=== PATIENT | female | born 1955 | race Caucasian/White ===

== ENCOUNTER → 2017-08-18 | Outpatient (CLI) | payer OTHER ==
--- NOTE | 2017-08-19 15:56 | RADIOLOGY REPORT (SQ) ---
EXAM DESCRIPTION: MRI LUMBAR SPINE WITHOUT COMPLETED DATE/TIME: 08/18/2017 12:48 pm REASON FOR STUDY: OTHER INTERVERTEBRAL DISC DEGENERATION, LUMBAR REGION M51.36 OTHER INTERVERTEBRAL DISC DEGENERATION, LUMBAR REGION COMPARISON: None. TECHNIQUE: Sagittal and Axial imaging includes T1, T2, STIR and gradient echo sequences. Coronal T2/ HASTE imaging. LIMITATIONS: None. FINDINGS: VISUALIZED UPPER ABDOMEN: Limited evaluation. No acute or suspicious findings suggested. SEGMENTATION: No transitional anatomy. The lowest well-developed disc space is labeled L5-S1. ALIGNMENT: Anatomic. VERTEBRAE: Intact. BONE MARROW: Normal. No marrow replacement or reactive changes. DISC SIGNAL: Discs are relatively maintained. No large disc bulges or hernias. POSTERIOR ELEMENTS: Generally intact. No pars defect evident. HARDWARE: None in the spine. CORD AND CONUS: Normal in size and signal intensity. Conus at the appropriate level. SOFT TISSUES: No aortic aneurysm seen. No bulky retroperitoneal adenopathy or mass. No paraspinal mas s or fluid. L1-L2: No significant spinal stenosis or exit foraminal stenosis. L2-L3: No significant spinal stenosis or exit foraminal stenosis. L3-L4: No significant spinal stenosis or exit foraminal stenosis. L4-L5: Mild left foraminal narrowing. L5-S1: Mild left foraminal narrowing. LOWER THORACIC: Incompletely imaged. No stenosis seen. SACRUM: Visualized upper sacrum intact. OTHER: No other significant findings. IMPRESSION: No evidence of spinal stenosis or spinal malalignment. TECHNICAL DOCUMENTATION: JOB ID: [id number] [employer]- All Rights Reserved Reading location - IP/workstation name: [email or web address]
== END ==
LOC: RAD 12:05
PROVIDERS: ATTEND Physician Assistant
DX: M51.36 Other intervertebral disc degeneration, lumbar region (principal)
CPT/HCPCS: 72148

== ENCOUNTER → 2017-08-30 | Outpatient (CLI) | payer OTHER ==
--- NOTE | 2017-08-31 11:51 | XCELERA REPORT ---
[address] [address] Lower Extremity Arterial Evaluation Name: GALILEO MIRANDA Age: 62 yrs Gender: Female : 1955 Patient Status: Outpatient Patient Location: Study Date: 08/30/2017 09:24 AM Procedure: A color flow and duplex scan of the lower extremity arteries was performed bilaterally with velocity and waveform anaylsis. Ankle brachial indicies performed. Reason For Study: PVD Ordering Physician: PERNELL JUAN Performed By: Kelvin Calvo Measurements and Calculations Right Left [employer] PSV 168.5 104.3 cm/sec Prox PFA PSV -98.2 -60.4 cm/sec Prox SFA PSV 161.5 132.0 cm/sec Mid SFA PSV -91.0 -83.5 cm/sec Dist SFA PSV -68.5 -66.0 cm/sec Prox Pop A PSV 70.7 66.0 cm/sec Dist MELIDA PSV 54.7 59.7 cm/sec Dist OYSTER WASHER PSV 66.8 -68.4 cm/sec Gentry Pedis PSV 43.0 63.6 cm/sec Right Side Arterial Evaluation Normal velocity and triphasic waveforms noted from the Common Femoral artery to the infrageniculate vessels. 0 % stenosis . Ankle Brachial index is 1.13. Left Side Arterial Evaluation Normal velocity and triphasic waveforms noted from the Common Femoral artery to the infrageniculate vessels. 0 % stenosis . Ankle Brachial index is 1.00. Interpretation Summary No hemodynamically significant lesions in the bilateral lower extremities, on duplex imaging, at rest. : PERNELL JUAN > Jesus Zurita
== END ==
LOC: SP 08:56
PROVIDERS: ATTEND Physician Assistant
DX: M54.5 Low back pain (principal); M12.9 Arthropathy, unspecified; I73.9 Peripheral vascular disease, unspecified
CPT/HCPCS: 93925